=== PATIENT | female | born 1985 | race Caucasian/White ===

== ENCOUNTER 2016-08-28 22:13 | Emergency (ER) | payer SELFPAY ==
[~2016-08-28] VITALS: Ht 175.3 cm; Wt 81.5 kg
[2016-08-28 22:16] VITALS: BP 111/78; PULSE 70; RESP 16; TEMP 98.3; O2SAT 99
--- NOTE | 2016-08-28 22:29 | PD ---
HPI Chief Complaint: Injury Time Seen by Provider: 22:27 (Laurel Bejarano) Time Seen by Provider: 22:23 (Michelle Felix MD) Travel History International Travel<30 days: No Contact w/Intl Traveler<30days: No Traveled to known affect area: No (Laurel Bejarano) History of Present Illness HPI 31 year old female presents emergency department for evaluation of right foot pain status post twisting injury today. Patient reports that while walking she twisted foot and had immediate pain within the mid aspect of the foot. She has difficulty with weightbearing. Pain is localized to the bridge of the foot, nonradiating, worse with weightbearing, relieved with rest severity 6 out of 10. She denies any other injury. (Laurel Bejarano) PFSH Past Medical History Medical History: Denies Significant Hx ?: Not LMP: 7 months ago (Laurel Bejarano) Social History Tobacco Use: No (Laurel Bejarano) Allergies-Medications (Allergen,Severity, Reaction): Coded Allergies: No Known Allergies (Unverified , 08/28/16) Reported Meds & Prescriptions Reported Meds & Active Scripts Active No Active Prescriptions or Reported Medications (Michelle Felix MD) Review of Systems Except as stated in HPI: all other systems reviewed are Neg (Laurel Bejarano ) Physical Exam Narrative GENERAL: Well-nourished, well-developed patient. SKIN: Focused skin assessment warm/dry. HEAD: Normocephalic. EYES: No scleral icterus. No injection or drainage. NECK: Supple, trachea midline. No JVD or lymphadenopathy. CARDIOVASCULAR: Regular rate and rhythm without murmurs, gallops, or rubs. RESPIRATORY: Breath sounds equal bilaterally. No accessory muscle use. GASTROINTESTINAL: Abdomen soft, non-tender, nondistended. MUSCULOSKELETAL: No cyanosis, or edema. Right foot: Mild swelling and point tenderness over the base of the fifth metatarsal and midfoot. Patient has normal sensation and movement of the digits. 2+ distal pulses. No deformity. BACK: Nontender without obvious deformity. No CVA tenderness. (Laurel Bejarano) Data Data Last Documented VS Vital Signs Date Time Temp Pulse Resp B/P Pulse Ox O2 Delivery O2 Flow Rate FiO2 08/28/16 22:16 98.3 70 16 111/78 99 (Michelle Felix MD) Orders Foot, Complete ([id number]) (08/28/16 ) Crutches (08/28/16 22:52) ^ Adriel Bandage (08/28/16 22:52) (Michelle Felix MD) MDM Medical Decision Making Medical Screen Exam Complete: Yes Differential Diagnosis Right foot painsprain versus fracture versus contusion Narrative Course 31-year-old female presents to emergency department for evaluation of right foot pain status post twisting injury today. On exam patient has notable swelling and tenderness over the midfoot and base of the fifth metatarsal. The extremity is neurovascularly intact. X-ray pending Right foot x-ray: Negative for fracture Patient treated for midfoot sprain. Adriel wrap applied to foot and ankle and crutches. Patient instructed to ice and elevate the extremity. Tylenol and Motrin as needed for pain. (Laurel Bejarano) Medical Screen Exam Complete: Yes Emergency Medical Condition: Yes Medical Record Reviewed: Yes (Michelle Felix MD) Diagnosis Primary Impression: Sprain of foot, right Qualified Code: S93.601A - Sprain of foot, right, initial encounter Referrals: Primary Care Physician Additional Instructions: Ice and elevate the extremity. Continue to use crutches until weightbearing is nonpainful. Take [id number] Tylenol and/or Motrin as needed for pain. Return to the emergency department if he has new or worsening symptoms. Scripts No Active Prescriptions or Reported Meds Disposition: 01 DISCHARGE HOME Condition: Stable Laurel Bejarano Aug 28, 2016 22:29 Michelle Felix MD Aug 29, 2016 04:39
--- NOTE | 2016-08-28 22:58 | RADRPT ---
EXAM DATE/TIME: 08/28/2016 22:29 [facility] COMPARISON: No previous studies available for comparison. INDICATIONS : Right foot pain. MEDICAL HISTORY : None. SURGICAL HISTORY : None. ENCOUNTER: Initial ACUITY: 1 day PAIN SCORE: 6/10 LOCATION: Right foot. FINDINGS: Three view examination of the right foot demonstrates no soft tissue swelling, dislocation, or fractu re. The tarsal bones appear intact. The interphalangeal and metatarsophalangeal joints are intact. The calcaneus is intact. Bony mineralization is normal. CONCLUSION: Unremarkable exam. Vijay Arzola MD on August 28, 2016 at 22:55 Board Certified Radiologist. This report was verified electronically.
== END 2016-08-28 22:50 | disposition home or self-care (01) ==
LOC: PHEFT 22:13
DX: S93.601A Unspecified sprain of right foot, initial encounter (principal); X58.XXXA Exposure to other specified factors, initial encounter
CPT/HCPCS: 73630; 99283; E0113